=== PATIENT | male | born 1960 | race Caucasian/White ===

== ENCOUNTER 2017-05-08 08:56 | Emergency (ER) | payer SELFPAY ==
[~2017-05-08] VITALS: Ht 180.3 cm; Wt 109.0 kg
[~2017-05-08 08:56] MED LIST: HI B COMPLEX1 EAC1 PO; LYRICA50 MG PO; MULTI-VITAMIN-1 EACH PO; ULTRAM50 MG PO; VITAMIN C500 M1 PO; VITAMIN D31000 UNIT PO
[2017-05-08 09:46] LABS: BASOPHIL (%) 0.6 % (0-1); BASOPHIL COUNT 0.1 K/uL (0-0.1); EOSINOPHIL (%) 8.2 % (0-5); EOSINOPHIL COUNT 1.3 K/uL (0-0.3); HEMATOCRIT 54.7 % (38.0-50.0); HEMOGLOBIN 18.7 G/DL (12.5-16.6); IMMATURE GRANULOCYTE (%) 0.4 % (0.0-0.7); LYMPHOCYTE (%) 11.8 % (15-42); LYMPHOCYTE COUNT 1.9 K/uL (1.0-2.8); MCHC 34.2 G/DL (30.0-36.0); MCV 96.5 FL (86-99); MONOCYTE COUNT 0.8 K/uL (0-0.8); NEUTROPHIL COUNT 11.6 K/uL (1.8-6.4); PLATELET COUNT 223 K/uL (156-360); RBC DIS.WIDTH-CV 14.2 % (11.8-14.6); RBC DIS.WIDTH-SD 50.7 % (39-53); RED BLOOD COUNT 5.67 M/uL (4.00-5.50); WHITE BLOOD COUNT 15.6 K/uL (4.1-10.2)
[2017-05-08 09:59] LABS: CHLORIDE 102 mEq/L (99-109); SODIUM 141 mEq/L (136-147)
[2017-05-08 10:01] LABS: GLUCOSE 142 mg/dL (70-99)
[2017-05-08 10:04] LABS: CREATININE 0.8 mg/dL (0.6-1.3); GFR ESTIMATE (CALCULATED) > 59 mL/min/ (58.99-99999)
[2017-05-08 10:05] LABS: UREA NITROGEN (BUN) 10 mg/dL (9-23)
[2017-05-08] MEDS ORDERED: PREDNISONE50 MG PO (11:04)
[2017-05-08] MEDS ORDERED: AZITHROMYCIN250 MG PO (11:04)
[2017-05-08] MEDS ORDERED: VENTOLIN HFA18 GM IH (11:04)
[2017-05-08] MEDS ORDERED: PROSTATE HEALT1 EAC1 PO (11:06)
[2017-05-08] MEDS ORDERED: SAW PALMETTO500 MG PO (11:06)
[2017-05-08 11:11] VITALS: BP 125/70
== END 2017-05-08 11:11 | disposition left against medical advice (07) ==
LOC: EME 08:56
PROVIDERS: Emergency Medicine
DX: J44.1 Chronic obstructive pulmonary disease with (acute) exacerbation (principal); J40 Bronchitis, not specified as acute or chronic; R00.0 Tachycardia, unspecified; F17.200 Nicotine dependence, unspecified, uncomplicated
CPT/HCPCS: 71045; 80048; 85025; 93005; 94640; 99281; 99285; J2930